=== PATIENT | female | born 1965 | race Caucasian/White ===

== ENCOUNTER 2019-10-19 22:11 | Emergency (ER) | payer MEDICARE, MEDICAID, SELFPAY ==
--- NOTE | ~2019-10-19 | CT_ITS ---
EXAMINATION: CT abdomen pelvis w con DATE: 10/19/2019 23:43 INDICATION: Abdominal pain TECHNIQUE: Computed tomography (CT) of the abdomen and pelvis was performed with 100 mL Omnipaque-350 intravenous contrast. Automated exposure control and iterative reconstruction technique were employe d. The dose-length product was 184.89 mGy-cm. COMPARISON: None FINDINGS: Lung bases are clear. Heart size is normal. No pericardial or pleural effusion. Gallbladder, spleen, pancreas, bilateral adrenal glands and kidneys are normal. Diffuse periportal edema throughout the li alexa. No evident filling defects in the portal and hepatic veins which are well opacified with contras t. No abnormal bowel wall thickening or obstruction. Appendix is normal. Prominent diffuse bladder wa ll thickening without surrounding inflammatory stranding. The uterus is not identified and has likely been surgically resected. No free intraperitoneal gas or fluid. No pathologically enlarged abdominal or pelvic lymphadenopathy. Bones are unremarkable. IMPRESSION: 1. Nonspecific diffuse periportal edema. Dental etiologies include acute hepatitis, hepatic venoocclu sive disease or hyperhydration, congestive heart failure and lymphatic obstruction at the fiorella hepat is. 2. Diffuse bladder wall thickening which could be due to cystitis either acute or chronic or neurogen ic bladder. Correlate with urinalysis. Reviewed, dictated and finalized at location A. ITECTURE INSTRUCTOR IMPRESSION: 1. Nonspecific diffuse periportal edema. Dental etiologies include acute hepati tis, hepatic venoocclusive disease or hyperhydration, congestive heart failure and lymphatic obstruction at the fiorella hepatis. 2. Diffuse bladder wall thickening which could be due to cystitis either acute or chronic or neurogenic bladder. Correlate with urinalysis.
[2019-10-19 22:27] VITALS: BP 121/72; PULSE 82; RESP 13; TEMP 36.8; O2SAT 95
--- NOTE | 2019-10-19 22:43 | ED.ABDPAIN ---
HPI - Abdominal Pain General Chief Complaint: Abdominal Pain Stated Complaint: upper GI problems Time Seen by Provider: 10/19/19 22:30 Source: patient Mode of arrival: ambulatory Limitations: no limitations History of Present Illness HPI narrative: Arianna is a 54-year-old female patient. She presents ambulatory to the emergency room. She states that she has had abdominal pain for the past 2 days. The pain is mostly in the epigastric area. The pain radiates downward from here. She has nausea but no vomiting. The pain is intermittent and sharp. She rates it as moderate to severe. No history of diarrhea. No urinary symptoms. No fever. She states that several years ago she has had upper and lower GI endoscopy. She has had some bloating since Saturday. She had a bowel movement today. She has been on omeprazole. She gives a history of gastric ulcers and GERD. She has apparently had a hysterectomy in the past, as the uterus is not seen in the CT scan MD elicited complaint: abdominal pain Pertinent past history: other ( See HPI narrative) Onset (ago): day(s) ( 2 days) Pain Consistency: intermittent Location: epigastric, LUQ and RUQ Severity: moderate Quality: sharp Radiation: other ( see HPI narrative) Exacerbating factors: nothing Relieving factors: nothing Context: confirms other Associated symptoms: nausea and other ( No fever. No chills. No urinary problems. No blood in the stool .Has nausea but no vomiting. No diarrhea.) Treatments prior to arrival: other ( Takes omeprazole) Related Data Patient : No Home Medications Medication Instructions Recorded Confirmed albuterol sulfate 2 puff INHALATION PRN PRN 10/19/19 10/19/19 fluticasone propionate 2 spray INTRANASAL PRN 10/19/19 10/19/19 omeprazole 40 mg PO DAILY 10/19/19 10/19/19 Allergies Allergy/AdvReac Type Severity Reaction Status Date / Time ibuprofen Allergy Intermediate Verified 07/31/11 11:41 Penicillins Allergy Intermediate Verified 07/31/11 11:40 varenicline [Chantix] Allergy Intermediate depression Verified 01/02/12 11:42 aspirin Allergy Unknown Other Verified 09/24/17 07:24 Review of Systems Review of Systems: All systems reviewed & are unremarkable except as noted in HPI and below Constitutional: Constitutional: Reports as per HPI, Denies chills and Denies fever(s) Eyes: Eyes: Reports as per HPI and Denies change in vision ENT: Reports system reviewed and no additional complaints, except as documented, Denies vertigo, Denies dizziness, Denies nasal congestion and Denies sore throat Cardiovascular: Cardiovascular: Reports as per HPI, Denies chest pain and Denies radiating jaw, neck or arm pain Respiratory: Respiratory: Reports as per HPI, Denies cough and Denies dyspnea Gastrointestinal: Gastrointestinal: Reports as per HPI, Reports abdominal pain, Denies constipation, Denies diarrhea, Reports nausea and Denies vomiting Genitourinary: Genitourinary: Reports no additional female genitourinary complaints, Denies hematuria and Denies dysuria Musculoskeletal: Musculoskeletal: Reports no additional musculoskeletal complaints and Denies back pain Integumentary/Breasts: Skin/Breast: Reports system reviewed and no additional complaints, except as docu, Denies erythema and Denies rash Neurologic: Reports system reviewed and no additional complaints, except as documented, Denies vertigo, Denies dizziness, Denies syncope, Denies focal weakness and Denies weakness Psychiatric: Psychiatric: Reports no additional psychiatric complaints Endocrine: Endocrine: Reports no additional endocrine complaints, Denies polydipsia and Denies polyuria Hematologic/Lymphatic: Hematologic/Lymphatic: Reports no additional hematologic/lymphatic complaints, Denies easy bleeding and Denies easy bruising Allergic/Immunologic: Allergic/Immunologic: Reports no additional allergic/immunologic complaints, Denies lip swelling and Denies tongue swelling PMFSH Past Medical His
[2019-10-19] MEDS: PANTOPRAZOLE SODIUM IV 40 MG VIAL (22:57)
[2019-10-19] MEDS: SODIUM CHLORIDE 0.9% IV 1,000 ML 999 ML IV CONT (22:58)
[2019-10-19] MEDS: ONDANSETRON INJ 4 MG/2 ML VIAL IV PUSH (22:58)
[2019-10-19 23:10] LABS: Basophils Absolute Auto 0.04 K/mm3 (0.00-0.10); Basophils Percent Auto 0.5 % (0.0-1.0); Eosinophils Absolute Auto 0.13 K/mm3 (0.02-0.50); Eosinophils Percent Auto 1.5 % (1.0-6.0); Hematocrit 37.9 % (35.0-49.0); Hemoglobin 13.1 g/dL (12.0-15.0); Immature Granulocyte Absolute 0.02 K/mm3 (0.00-0.00); Immature Granulocyte Percent A 0.2 % (0.0-0.0); Lymphocytes Absolute Auto 3.35 K/mm3 (1.10-4.50); Lymphocytes Percent Auto 38.7 % (18.0-42.0); Mean Corpuscular HGB Conc 34.6 g/dL (32.0-36.0); Mean Corpuscular Hemoglobin 31.7 pg (27.0-31.0); Mean Corpuscular Volume 91.8 fL (78.0-102.0); Mean Platelet Volume 11.9 fl (9.2-11.8); Monocytes Absolute Auto 0.63 K/mm3 (0.10-0.90); Monocytes Percent Auto 7.3 % (2.0-11.0); Neutrophils Absolute Auto 4.5 K/mm3 (1.7-7.2); Neutrophils Percent Auto 51.8 % (50.0-70.0); Platelet Count Result 179 K/mm3 (150-420); Red Blood Count 4.13 M/mm3 (4.20-5.40); Red Cell Distribution Width 12.5 % (11.6-14.4); White Blood Count 8.7 K/mm3 (4.8-10.8)
[2019-10-19 23:21] LABS: Partial Thromboplastin Time 25.1 SEC (22.3-31.6); Prothrombin Time 10.2 Seconds (9.64-11.0)
[2019-10-19 23:23] LABS: Alanine Aminotransferase 17 U/L (14-59); Albumin Level 3.7 g/dL (3.4-5.0); Alkaline Phosphatase 118 U/L (46-116); Amylase 42 U/L (25-115); Anion Gap 14.1 mmol/L (7-16); Aspartate Amino Transferase 13 U/L (15-37); Bilirubin Direct 0.1 mg/dL (0-0.2); Bilirubin,Total 0.2 mg/dL (0.00-1.00); Blood Urea Nitrogen 9 mg/dL (7-18); Calcium 8.5 mg/dL (8.5-10.1); Carbon Dioxide 27 mmol/L (21-32); Chloride 107 mmol/L (98-108); Estimated CRCL calculation 48 ml/min; Estimated Glomerular Filt Rate 53; Glucose 81 mg/dL (70-99); Lipase 157 U/L (73-393); Osmolality Calculated 295 mOsm/kg (285-295); Potassium 4.1 mmol/L (3.5-5.1); Sodium 144 mmol/L (136-145); Total Protein 6.9 g/dL (6.4-8.2)
--- NOTE | 2019-10-19 23:29 | PC.NURSE ---
2047 RN CONTACTED RADIOLOGY DEPARTMENT FOR ORDER COMPLETION. [id number] IN WHEELCHAIR.
[2019-10-19 23:39] LABS: Add Urine Microscopic? NO; Appearance Urine Clear (Clear); Bilirubin Urine Negative (Negative); Blood Urine Negative (Negative); Color Urine Yellow (Yellow); Glucose Urine UA Negative (Negative); Ketones Urine Negative (Negative); Leukocyte Esterase Ur Negative LEU/UL (Negative); Nitrate Urine Negative (Negative); Protein Urine Negative (Negative); Urobilinogen Urine 0.2 mg/dL (0.2-1.0)
--- NOTE | 2019-10-20 00:27 | PC.NURSE ---
Call placed to [facility] re: CT results and possible consult c liver specialist. [facility] states they have no liver specialty and that these pts. require transfer or consult c [facility]. Spoke to pt. about POC to call for consult c specialist at [facility].
--- NOTE | 2019-10-20 00:29 | PC.NURSE ---
ERP discussing POC c pt. and will try to speak c hepatic specialty at [facility] for consult and/or transfer.
--- NOTE | 2019-10-20 00:32 | PC.NURSE ---
Pt. refuses [facility], wants consult c [facility] for f/u or transfer if needed. Call placed to [facility]. Spoke to transfer center [facility]. Will contact specialist and await callback.
[2019-10-20 00:47] VITALS: BP 105/65; PULSE 72; RESP 18; O2SAT 100
--- NOTE | 2019-10-20 00:48 | PC.NURSE ---
Pt. wanted IV site D/C'd and wants to go home tonight. Informed pt. waiting director of occupational health back from [facility] specialist for ERP to speak c for a POC for f/u or transfer if needed. ERP informed of pts. wishes, IV D/C'd. Will await call back from for consult.
--- NOTE | 2019-10-20 01:21 | PC.NURSE ---
[address] Ren at [facility], speaking c ERP Dr. Higginbotham. POC discussed and pt. informed by ERP on f/u plans.
[2019-10-20 01:30] VITALS: BP 110/64; PULSE 70; RESP 18; TEMP 36.6; O2SAT 100
[2019-10-23 21:28] LABS: Hepatitis A Antibody IgM Nonreactive; Hepatitis B Core Antibody Nonreactive (Nonreactive); Hepatitis B Surface Antigen Nonreactive (Nonreactive); Hepatitis C Virus Antibody Nonreactive (Nonreactive)
--- NOTE | 2019-10-30 22:17 | PC.NURSE ---
PT CONTACTED THE ED ON 10/30/19 AT 2215 VIA TELEPHONE TO ASK NURSE IF SHE CAN BE TRANSPORTED TO [facility] BECAUSE SHE CAN NOT WAIT FOR HER OUTPATIENT APPOINTMENT ON 11/13/19. RN EXPLAINED THAT IF THE PATIENT WAS HAVING AN EMERGENCY MEDICAL COMPLAINT SHE CAN COME TO THE
--- NOTE | 2019-10-30 22:22 | PC.NURSE ---
PT CONTACTED ED ON 11/13/19 AT 2215 VIA TELEPHONE TO ASK NURSE IF SHE CAN BE TRANSFERRED TO [facility] NOW SINCE [facility] DID NOT TRANSFER HER THERE DURING HER 10/19/19 VISIT. RN EXPLAINED THAT IF THE PATIENT IS HAVING A MEDICAL EMERGENCY SHE MAY CALL 911 OR COME TO [facility] ED TO BE REEVALUATED BUT [facility] ED CANNOT GUARANTEE TRANSPORT TO ANOTHER FACILITY. PT BECAME ANGRY WITH RNS ANSWER AND STATED 'FINE, I WILL JUST DRIVE MYSELF THERE THEN' AND HUNG UP THE PHONE.
== END 2019-10-20 01:41 | disposition home or self-care (01) ==
PROVIDERS: Emergency Provider Surgery; PCP Physician Assistant
DX: R10.13 Epigastric pain (principal); K21.9 Gastro-esophageal reflux disease without esophagitis; F17.200 Nicotine dependence, unspecified, uncomplicated
CPT/HCPCS: 36415; 74177; 80053; 80074; 81003; 82150; 82248; 83690; 85025; 85610; 85730; 96361; 96374; 96375; 99284; C9113; J2405; J7030; Q9965

== ENCOUNTER 2024-02-19 22:24 | Emergency (ER) | payer MEDICARE, SELFPAY ==
[2024-02-19 22:24] VITALS: BP 140/74; PULSE 98; RESP 20; O2SAT 96
[2024-02-19 22:26] VITALS: BP 140/74; PULSE 100; RESP 18; TEMP 36.6; O2SAT 96
--- NOTE | 2024-02-19 22:26 | ED.ALLEREA ---
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 She usually takes EpiPen after a bee sting. -- The patient also complains of shortness of breath. Patient has an oxygen saturation of 96% on room air with a respiratory rate of 18. -- The patient states that she has throat swelling. She has a clear voice without any stridor. The patient's blood pressure is stable. No urticarial/erythematous rash noted. MD complaint: allergic reaction Onset (ago): hour(s) ( 2 hours ago) Exposure: insect bite Symptoms: other ( shortness of breath and throat swelling) Treatment prior to arrival: none Previous Allergic Reaction History: other ( allergic reaction to bee sting) Related Data Home Medications Medication Instructions Recorded Confirmed albuterol sulfate 90 mcg/actuation 2 puff inhalation PRN PRN 10/19/19 02/19/24 aerosol inhaler Shortness Of Breath fluticasone propionate 50 2 spray intranasal PRN 10/19/19 02/19/24 mcg/actuation nasal spray,suspension diazepam 10 mg tablet 10 mg PO PRN 02/19/24 02/19/24 Allergies Allergy/AdvReac Type Severity Reaction Status Date / Time ibuprofen Allergy Intermediate Unknown Verified 02/19/24 22:41 Penicillins Allergy Intermediate Unknown Verified 02/19/24 22:41 varenicline [Chantix] Allergy Intermediate depression Verified 02/19/24 22:41 aspirin Allergy Unknown Other Verified 02/19/24 22:41 Review of Systems Review of Systems: All systems reviewed & are unremarkable except as noted in HPI and below Constitutional: Constitutional: Reports as per HPI and Reports no additional constitutional complaints Eyes: Eyes: Reports as per HPI and Reports no additional eye complaints ENT: Reports system reviewed and no additional complaints, except as documented and Reports as per HPI Comments: patient complains of throat swelling. Cardiovascular: Cardiovascular: Reports as per HPI and Reports no additional cardiovascular complaints Respiratory: Respiratory: Reports as per HPI, Reports no additional respiratory complaints and Reports dyspnea Gastrointestinal: Gastrointestinal: Reports as per HPI and Reports no additional gastrointestinal complaints Genitourinary: Genitourinary: Reports no additional female genitourinary complaints and Reports as per HPI Musculoskeletal: Musculoskeletal: Reports no additional musculoskeletal complaints and Reports as per HPI Integumentary/Breasts: Skin/Breast: Reports system reviewed and no additional complaints, except as docu and Reports as per HPI Neurologic: Reports system reviewed and no additional complaints, except as documented and Reports as per HPI Psychiatric: Psychiatric: Reports no additional psychiatric complaints and Reports as per HPI Endocrine: Endocrine: Reports no additional endocrine complaints and Reports as per HPI Hematologic/Lymphatic: Hematologic/Lymphatic: Reports no additional hematologic/lymphatic complaints and Reports as per HPI Allergic/Immunologic: Allergic/Immunologic: Reports no additional allergic/immunologic complaints, Reports as per HPI and Reports throat swelling Comments: Throat swelling shortness of breath PMFSH Past Medical History Medical History Anxiety Functional dyspepsia GERD (gastroesophageal reflux disease) Hiatal hernia Mixed irritable bowel syndrome Nicotine abuse Stomach ulcer Family History Family History Father , Father in a car accident at
--- NOTE | 2024-02-19 22:35 | PC.NURSE ---
Patient upset with dr decision to not give epi. Patient stated that this RN that that dr is an idiot. why would my dr (ORTHOPAEDIC DOCTOR) prescribe me an epi pen for bee stings if i wasnt allergic to them or i didnt actually need them . Patient asked why she made that statement. Patient states that this is a [facility] [place] and is stating that she is going to make a formal complaint against the dr because she doesnt agree with his course of treatment. ERP tried to explain to patient the risks of giving epi on a person that is not requiring it. Patient stated thats fucking stupid and shes never coming back to the [facility] ever again. Patient was asked to not speak of staff that way that she was. Patient then stated well he is, this is fucking stupid. Patient then demanded that her epi pens get filled. Patient educated on how the medication process works and stated that we are not a pharmacy so we cannot refill her medication, however she has three refills on her prescription thru her drs office and she can get that filled tomorrow. This RN administered the medications that were ordered by ERP and educated that patient again on how and why the medications were used. Patient stated that she didnt fucking care and i just needed to give the medications where i needed to. ERP went in and talked with patient again after this RN stated that we would need to observe her for a little bit after the medications were given to make sure that they were working and her reaction wasnt getting any worse. Patient then stated that she would not stay in this joke of a hospital, I will go to a real hospital, like [facility] before i in this one. Patient demanding her paperwork. This RN told the patient that her treatment was not finished as she needed to be observed for further allergic reaction and that the ERP was not going to discharge her at this time, so if she wanted to leave it would have to be against medical advice. Patient signed AMA forms and demanded her discharge paperwork a second time, it was explained to the patient that its AMA because the course of treatment is not finished and ERP has not medically cleared her for discharge at this time. Patient then stated we were all fucking stupid, Im never fucking coming back to this hospital again, youre all a bunch of idiots and continued to yell obscenities while walking out of the ER, through the lobby and out of the facility. P
[2024-02-19] MEDS: diphenhydrAMINE HCl INJ 50 MG/ML VIAL 25 MG IM (22:39)
[2024-02-19] MEDS: methylPREDNISolone SOD SUCC 125 MG VIAL IM (22:40)
--- NOTE | 2024-02-19 22:50 | PC.NURSE ---
pt received AMA forms from RN. stated she was going to a real hospital called [place] then started screaming profanities while walking out
== END 2024-02-19 22:45 | disposition left against medical advice (07) ==
PROVIDERS: Emergency Provider Internal Medicine Critical Care Medicine; PCP Physician Assistant
DX: T63.441A Toxic effect of venom of bees, accidental (unintentional), initial encounter (principal); F17.210 Nicotine dependence, cigarettes, uncomplicated; Z79.899 Other long term (current) drug therapy
CPT/HCPCS: 96372; 99284; J1200; J2919

== ENCOUNTER 2025-05-15 23:57 | Emergency (ER) | payer MEDICARE, SELFPAY ==
--- NOTE | ~2025-05-15 | XR_ITS ---
Examination: XR chest 1V Clinical History: SHORTNESS OF BREATH Comparison: None Technique: Portable AP Findings: Heart size normal. Left pleural effusion and lower lobe airspace opacity. No acute bony abnormality. IMPRESSION: 1. Left pleural effusion with lower lobe airspace opacity. Mass not excluded. Recommend CT chest. Reviewed, dictated and finalized at location R.
--- NOTE | ~2025-05-15 | CT_ITS ---
EXAMINATION: CT brain wo con DATE: 05/16/2025 01:08 INDICATION: Altered mental status. Confusion. TECHNIQUE: Computed tomography (CT) of the head was performed without intravenous contrast. The mA was adjusted according to patient size. Iterative reconstruction technique was employed. The dose-length product was 605.33 mGy-cm. COMPARISON: Head CT 12/17/2011 FINDINGS: There is no intracranial hemorrhage, acute infarction, or abnormal intracranial mass lesion. The ventricles are normal in size. The orbits are normal. There is mucosal thickening in the paranasal sinuses. The mastoid air cells are normal. IMPRESSION: 1. Normal brain. Reviewed, dictated and finalized at location E. IMPRESSION: 1. Normal brain.
--- NOTE | ~2025-05-15 | CT_ITS ---
EXAMINATION: CTA chest PE protocol DATE: 05/16/2025 02:58 INDICATION: Shortness of breath. TECHNIQUE: Computed tomography angiography (CTA) of the chest was performed with 100 mL Omnipaque-350 intravenous contrast timed to evaluate the pulmonary arteries. Coronal maximum intensity projection 3D-reconstructions were created by the technologist. Automated exposure control and iterative reconstruction technique were employed. The dose-length product was 144.65 mGy-cm. COMPARISON: CT abdomen and pelvis 10/19/2019 FINDINGS: There is mild emphysema. There is a 6 mm nodule in right middle lobe. There are airspace opacities in left upper lobe and left lower lobe with cavitation including a 6.9 x 5.2 cm intramural pulmonary abscess. There is a small left pleural effusion. There is no pulmonary embolus. The heart size is normal. No pericardial effusion. There is left hilar, mediastinal, and left supraclavicular lymphadenopathy with mass effect on the bronchi and pulmonary arteries. There is mild thoracic spondylosis. IMPRESSION: 1. Necrotizing pneumonia involving left upper lobe and left lower lobe with large intrapulmonary abscess. 2. 6 mm nodule in right middle lobe, probably infection. 3. Left hilar, mediastinal, and left supraclavicular lymphadenopathy suspicious for metastatic disease. 4. Small left pleural effusion. 5. No pulmonary embolus. 6. Mild emphysema. Reviewed, dictated and finalized at location E. IMPRESSION: 1. Necrotizing pneumonia involving left upper lobe and left lower lobe with lar ge intrapulmonary abscess. 2. 6 mm nodule in right middle lobe, probably infection. 3. Left hilar, mediastinal, and left supraclavicular lymphadenopathy suspicious for metastatic disease. 4. Small left pleural effusion. 5. No pulmonary embolus. 6. Mild emphysema.
[2025-05-15 23:58] VITALS: BP 105/63; BP 110/70; PULSE 102; PULSE 111; RESP 22; TEMP 38.8; O2SAT 94; O2SAT 95; O2SAT 98
[2025-05-16] VITALS (12 sets, daily range): BP systolic 100–125; BP diastolic 69–77; PULSE 74–110; RESP 18–26; TEMP 36.6–37.2; O2SAT 95–99
--- NOTE | 2025-05-16 | CONSULT_PTH ---
PATIENT: Arianna Bolivar LOC: [facility] U#:[id number] AGE/SX: 60/F ROOM: RE05/15/[address]: Ashok Avendano MD : 1965 BED: DIS: 05/16/2025 SPEC #: [id number] RECD: 05/16/25 10:40 STATUS: KEENAN REQ #: [id number] LISANDRA: 05/16/25 00:[address]: Ashok Avendano DEPT: [facility] Consult RECD BY: Livier Butler MLT, ([facility]) ENTERED: 05/16/25 10:40 SP TYPE: Consult OTHR DR: Flavio Early, PA Tissues: A - Peripheral Smear Procedures: Hematology Consult
--- NOTE | 2025-05-16 00:07 | ECG_ITS ---
Test Date: 2025-05-16 00:17:46 Measurements Intervals Craig Rate: 111 P: 59 AR: 105 QRS: 63 QRSD: 76 T: 36 QT: 301 QTc: 411 Interpretive Statements SINUS TACHYCARDIA WITH SHORT AR INTERVAL NONSPECIFIC ST AND T ABNORMALITY ABNORMAL ECG No previous ECG available for comparison Electronically Signed On 05-16-2025 08:35:44 CDT by Ashok Cha M.D.
[2025-05-16] MEDS: ACETAMINOPHEN 325 MG TABLET 650 MG PO (00:19)
[2025-05-16] MEDS: SODIUM CHLORIDE 0.9% IV 1,000 ML 999 ML IV CONT (00:24)
--- OUTSIDE RECORDS SUMMARY | 2025-05-16 00:38 | XMS_ITS | Clinical Summary ---
Author Organization [facility] [employer] Address [address] [place] [address] Care Team Providers Care Marketing Communications Leader Name Role Phone Flavio Early Primary Care Provider [phone] Source Comments [facility],non-owned Affiliates and Associated Physician Practices is amultiple site organization consisting of ambulatory clinics and hospital sitesin [place], [place], [place] and [place]. This disclosure is being madepursuant to the Care Everywhere program and may not contain all information available regarding this patient. Last updated 18.[facility] [employer] Allergies Active Allergy Reactions Criticality Noted Date Comments Ibuprofen GI Discomfort 10/31/2019 Medications * Be aware that medications may not be up to date on this document. Alwaysverify current medications with the patient. diazePAM (VALIUM) 2 MG tablet Take 10 tablets by mouth 3 times daily as needed Pt states she takes 30 mg daily Active hyoscyamine 0.125 MG tablet Take 1 (one) tablet by mouth every 4 hours as needed for Spasms 120 tablet 3 1 Active albuterol HFA (PROVENTIL; VENTOLIN; PROAIR) 108 (90 Base) MCG/ACT inhaler 1 Active fluticasone propionate (FLONASE) 50 MCG/ACT nasal spray [place] 1-2 sprays into the nose every 24 hours 8 Active famotidine (PEPCID) 20 MG tablet Take 1 (one) tablet by mouth 2 times daily 60 tablet 11 2 Active polyethylene glycol (Gavilyte-C) 240 g solution Drink half of prep solution at 5pm the night before colonoscopy. Finish the prep at 4am the day of test. 4000 mL 3 Active polyethylene glycol (Golytely) 236 g solution Drink half the prep at 5pm the night before colonoscopy. Drink the rest of prep at 4am the day of the colonoscopy. 4000 mL 3 Active sucralfate (Carafate) 1 GM tablet TAKE 1 (ONE) TABLET BY MOUTH 3 TIMES DAILY BEFORE MEALS APPOINTMENT NEEDED FOR ADDITIONAL REFILLS 120 tablet 3 Active omeprazole (PriLOSEC) 40 MG capsuleIndicati ons:Pain of upper abdomen TAKE 1 (ONE) CAPSULE BY MOUTH 2 TIMES DAILY, BEFORE BREAKFAST AND SUPPER APPOINTMENT NEEDED FOR ADDITIONAL REFILLS 180 capsule 3 Active dicyclomine (Bentyl) 10 MG capsule TAKE 1 (ONE) CAPSULE BY MOUTH 4 TIMES DAILY NEEDED APPOINTMENT NEEDED FOR ADDITIONAL REFILLS REASONS: IRRI 240 capsule 3 Active Active Problems No known active problems Family History Relation Name Status Comments Father Mother Sister Alive Social History Tobacco Use Types Packs/Day Years Used Date Smoking Tobacco: Every Day Cigarettes Smokeless Tobacco: Never Tobacco Cessation:Ready to Q uit: Yes; Counseling Given: No Alcohol Use Standard Drinks/Week Comments Never 0 (1 standard drink = 0.6 oz pur e alcohol) AUDIT-C Answer Date Recorded Frequency of Alcohol Consumption Never 10/31/2019 Average Number of Drinks Not on file 020 Frequency of Binge Drinking Not on file 02/2020 Comments No Sex and Gender Information Value Date Recorded Sex Assigned at Not on file 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 Gender Identity Not on file Sexual Orientation Not on file Last Filed Vital Signs Vital Sign Reading Time Taken Comments Blood Pressure 161/87 01/31/2022 9:33 AM CDT Pulse 85 01/31/2022 9:33 AM CDT Temperature 36.5 C (97.7 F) 01/31/2022 9:33 AM CDT Respiratory Rate 20 01/31/2022 9:33 AM CDT Oxygen Saturation 93% 01/31/2022 9:33 AM CDT Inhaled Oxygen Concentration - - Weight 58 kg (127 lb 12.8 oz) 01/31/2022 9:33 AM CDT Height 165.1 cm (5' 5) 11/13/2019 8:52 AM CDT Body Mass Index 21.27 11/13/2019 8:52 AM CDT Plan of Treatment Health Maintenance Due Date Last Done Comments COLOGUARD (AGES 45-75) - COL ON CA SCREENING 1965 COLON MONITORING 1965 COLONOSCOPY - COLON CA SCREENING 1965 CT COLONOGRAPHY - COLON CA SCREENING 1965 Colorectal Cancer Screening 1965 FIT - COLON CA SCREENING 1965 FLEX SIG - COLON CA SCREENING 1965 LIPID TESTING 1965 MAMMOGRAM 1965 HIV SCREENING 01/30/1980 HEPATITIS C SCREENING 01/25/1983 DTAP/TDAP/TD VACCINES (1 - Tdap) 01/30/1984 PNEUMOCOCCAL VACCINE 50+ (1 of 2 - PCV) 01/30/1984 PAP SMEAR 1986 ZOSTER VACCINE (1 of 2) 2015 DEPRESSION SCREENING 08/26/2024 MEDICARE AWV CALENDAR YEAR 2024 COVID-19 VACCINE (1 - 2023-2 5 season) 2025 INFLUENZA VACCINE (#1) 2025 07/26/2011 Respiratory Syncytial Virus (RSV) Vaccine Pt: or over 60 yrs (1 - 1-dose 75+ series) 01/30/2040 HEPATITIS B VACCINE Aged Out No longe r eligible based on patient's age to complete this topic HIB VACCINE Aged Out No longer eligi ble based on patient's age to complete this topic HPV VACCINE Aged Out No longer eligi ble based on patient's age to complete this topic MENINGOCOCCAL (Group B) VACC INE SHARED DECISION-MAKING Aged Out No longer eligibl e based on patient's age to complete this topic MENINGOCOCCAL GROUPS A/C/Y/W VACCINE Aged Out No longer eligible b ased on patient's age to complete this topic Goals Goal Patient Goal Type Associated Problems Recent Progress Patient-Stated? Author Medication Management General On track( 022 9:41 AM CDT) Sandee Bailey, RN Note: Expected end date: ONGOING Interventions: Take all medications as prescribed Let your doctor know right away about any changes in your medications Make sure to request a refill of your medication at least one week prior to your last dose Insurance [facility] MANAGED MEDICARE ADV MEDICARE [facility] MANAGED MEDICARE ADV Care Teams Marketing Communications Leader Relationship Specialty Start Date End Date Flavio Early PA [address] [place] [address] PCP - General Physician Ammonia Refrigeration Technician 10/31/19
[2025-05-16 00:56] LABS: Hematocrit 25.6 % (35.0-49.0); Hemoglobin 8.0 g/dL (12.0-15.0); Immature Platelet Fraction Pct 0.8 % (1.0-7.0); Mean Corpuscular HGB Conc 31.3 g/dL (32-36); Mean Corpuscular Hemoglobin 25.6 pg (27.0-31.0); Mean Corpuscular Volume 81.8 fL (78.0-102.0); Platelet Count Result 590 K/mm3 (150-420); Red Blood Count 3.13 M/mm3 (4.20-5.40); White Blood Count 20.4 K/mm3 (4.8-10.8)
[2025-05-16 01:10] LABS: Alanine Aminotransferase 21 U/L (6-35); Albumin Level 2.8 g/dL (3.5-5.1); Alkaline Phosphatase 107 U/L (38-126); Anion Gap 9 mmol/L (4-12); Aspartate Amino Transferase 35 U/L (14-36); Bilirubin,Total 0.8 mg/dL (0.2-1.3); Blood Urea Nitrogen 10 mg/dL (7-17); Calcium 8.4 mg/dL (8.4-10.2); Carbon Dioxide 28 mmol/L (22-30); Chloride 97 mmol/L (98-107); Estimated CRCL calculation 46 ml/min; Estimated Glomerular Filt Rate > 60; Glucose 131 mg/dL (65-110); Osmolality Calculated 279 mOsm/kg (285-295); Sodium 134 mmol/L (137-145); Total Protein 6.3 g/dL (6.3-8.2)
[2025-05-16 01:11] LABS: INR 1.3; Partial Thromboplastin Time 29.9 Sec (23.9-30.70); Prothrombin Time 13.9 Seconds (9.50-12.1)
[2025-05-16 01:13] LABS: Magnesium 0.9 mg/dL (1.6-2.3)
[2025-05-16 01:15] LABS: Potassium 2.8 mmol/L (3.4-5.0)
--- NOTE | 2025-05-16 01:18 | PC.NURSE ---
MALDONADO VARGAS NOTIFIED OF CRITICAL LAB VALUE AND NEW ORDERS FROM DR JUNG.
[2025-05-16 01:21] LABS: NT Pro B Type Natriuretic Pept 928 pg/mL (19.9-100); Troponin I < 0.012 ng/mL (0.000-0.034)
[2025-05-16] MEDS: IPRATROPIUM 0.5 MG/ALBUTEROL SULFATE 2.5 MG AMPUL.NEB 3 ML INHALATION (01:27)
[2025-05-16] MEDS: POTASSIUM BICARBONATE 25 MEQ TABEF 50 MEQ PO (01:31)
[2025-05-16 01:32] LABS: Influenza A QL RT-PCR Negative (Negative); Influenza B QL RT-PCR Negative (Negative); RSV RNA, RT-PCR Negative (Negative); SARS-CoV-2 RNA PCR Negative (Negative)
[2025-05-16 01:35] LABS: Band Neutrophils Percent 0 % (0-6); Lymphocytes Absolute Manual 0.81 K/mm3 (1.1-4.5); Lymphocytes Percent Manual 4 % (18-44); Monocytes Absolute Manual 0.40 K/mm3 (0.1-0.90); Monocytes Percent Manual 2 % (3-9); Neutrophils Absolute Manual 19.17 K/mm3 (1.3-6.7); Neutrophils Percent Manual 94 % (46-73); Total Cells Counted 100
[2025-05-16 01:36] LABS: Schistocytes None Seen
[2025-05-16 01:41] LABS: Glucose Urine UA Trace (Negative); Leukocyte Esterase Ur Negative LEU/UL (Negative); Nitrate Urine Negative (Negative); Specific Grav Ur 1.025 (1.010-1.020)
--- NOTE | 2025-05-16 01:45 | PC.NURSE ---
Pt sitting upright in bed, resting. Pt needs much explanation on need for txs given and then will consent after explanation given as to why she is needing breathing txs, fluids and K+ replacement. Pt is more alert, noted afebrile at this time after given tylenol. Pt c/o having a dry throat and cough and has had some difficulty swallowing for some time d/t throat swelling and swallowing issue. Pt reports that she lives by herself most time and her daughter will pop in once in a while. VSS. continuing to monitor, explained need for monitoring to pt.
[2025-05-16] MEDS: KCL 20 MEQ/SW 100 ML 100 ML 50 MEQ IVPB (01:48)
[2025-05-16] MEDS: SODIUM CHLORIDE 0.9% IV 1,000 ML 150 ML IV CONT ×2 (01:52→05:56)
[2025-05-16 01:53] LABS: Add Urine Microscopic? YES; Appearance Urine Cloudy (Clear)
[2025-05-16 02:06] LABS: Cannabinoid Screen Urine Negative (Negative)
[2025-05-16] MEDS: MAGNESIUM SULF 2 GM/WATER 50ML 2 GM/50 ML BAG IVPB (02:54)
[2025-05-16] MEDS: levoFLOXacin 500 MG/D5W 100 ML 500 MG/100 ML BAG 100 MG IVPB (02:54)
--- NOTE | 2025-05-16 03:37 | PC.NURSE ---
Pt watching TV quietly, has no c/o at this time, IV antibx and Magnesium infusing as per order. CTA back and ERP reviewing, pt will be admitted for obs, POC discussed w/ pt.
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
--- NOTE | 2025-05-16 03:50 | PC.NURSE ---
Discussed POC for transfer needed at this time d/t CT scan results. Pt states she really doesn't want to go anywhere but will go to [place] if needed. Calls placed for transfer.
--- NOTE | 2025-05-16 04:02 | PC.NURSE ---
Pt requests transfer to [facility] if needed. Call made for transfer.
--- NOTE | 2025-05-16 06:04 | PC.NURSE ---
Pt resting w/ eyes closed and awaiting callback for bed assignment at [facility]. VSS, IVF infusing as per order, RR even and nonlabored, continuing to monitor.
--- NOTE | 2025-05-16 06:10 | PC.NURSE ---
Call back from [facility] w/ bed assignment. Pt going to Rm [id number]. Report given to Madi Hamilton
--- NOTE | 2025-05-18 12:16 | PC.NURSE ---
Preliminary blood culture report; no growth detected at this time.
--- NOTE | 2025-05-19 14:00 | PC.NURSE ---
preliminary blood cultures x2 reviewed. no growth in 24 hours
--- NOTE | 2025-05-20 13:55 | PC.NURSE ---
preliminary blood cultures x2 reviewed. no growth in 48 hours.
--- NOTE | 2025-05-23 13:33 | PC.NURSE ---
FINAL BLOOD CULTURE NO AEROBIC OR ANAEROBIC GROWTH IN 5 DAYS
--- NOTE | 2025-05-24 12:53 | PC.NURSE ---
final blood cultures x2 reviewed. no growth in 48 hours.5 days. no change in plan of care
== END 2025-05-16 07:48 | disposition short-term general hospital (02) ==
PROVIDERS: Emergency Provider Emergency Medicine; PCP Physician Assistant
DX: J18.9 Pneumonia, unspecified organism (principal); J91.8 Pleural effusion in other conditions classified elsewhere; J44.9 Chronic obstructive pulmonary disease, unspecified; N39.0 Urinary tract infection, site not specified; F17.210 Nicotine dependence, cigarettes, uncomplicated; Z20.822 Contact with and (suspected) exposure to COVID-19
CPT/HCPCS: 36415; 70450; 71045; 71275; 80053; 80307; 81001; 83605; 83735; 83880; 84484; 85025; 85055; 85380; 85610; 85730; 87040; 87637; 93005; 94640; 96361; 96365; 96366; 96368; 96375; 99285; A9270; J1956; J2919; J3475; J3480; J7030; Q9967